=== PATIENT | male | born 1995 | race Caucasian/White ===

== ENCOUNTER 2019-09-11 22:17 | Observation (INO) | payer BC, SELFPAY ==
--- NOTE | ~2019-09-11 | CT_ITS ---
EXAMINATION: CT abdomen pelvis w con INDICATION: Abdominal pain TECHNIQUE: Computed tomographic images of the abdomen and pelvis were obtained after the administrati on of 100 cc of Omnipaque 350 intravenous contrast. The dose-length product (DLP) was 235.89 mGy-cm. Automated exposure control and iterative reconstruction technique were employed. COMPARISON: None available FINDINGS: The lung bases are clear. The heart size is normal. The liver, spleen, pancreas, gallbladde r, and adrenal glands are normal. The kidneys are unremarkable. The dilated appendix measures up to 1 0 mm and courses into the right pelvis. There is edematous stranding of the periappendiceal. A small volume of ascites is present in the pelvis. There is no evidence of abscess or perforation. No pathol ogically enlarged abdominal or pelvic lymph nodes are identified. There is no free intraperitoneal ga s or evidence of bowel obstruction. IMPRESSION: 1. Acute appendicitis, uncomplicated. Reviewed, dictated and finalized at location A.
[2019-09-11 22:19] VITALS: BP 136/83; PULSE 108; RESP 19; TEMP 36.2; O2SAT 97
[2019-09-11 22:36] LABS: Basophils Percent Auto 0.1 % (0.2-1.2); Hematocrit 43.7 % (42.0-52.0); Hemoglobin 15.4 g/dL (14.0-18.0); Immature Granulocyte Absolute 0.13 K/mm3 (0.00-0.031); Immature Granulocyte Percent A 0.6 % (0-0.5); Lymphocytes Absolute Auto 1.36 K/mm3 (0.9-3.2); Lymphocytes Percent Auto 6.6 % (18.3-44.2); Mean Corpuscular HGB Conc 35.2 g/dl (32-36); Mean Corpuscular Hemoglobin 30.3 pg (26-34); Mean Corpuscular Volume 85.9 fl (80-100); Mean Platelet Volume 9.6 fl (7.4-10.4); Monocytes Absolute Auto 1.8 K/mm3 (0.1-0.6); Monocytes Percent Auto 8.7 % (2.6-8.5); Neutrophils Absolute Auto 17.4 K/mm3 (1.3-6.7); Platelet Count Result 323 k/mm3 (150-375); Red Blood Count 5.09 M/mm3 (4.6-6.20); Red Cell Distribution Width 12.2 % (11.5-14.5); White Blood Count 20.8 K/mm3 (4.5-10.0)
[2019-09-11 22:49] LABS: Alanine Aminotransferase 20 U/L (4-50); Albumin Level 5.1 g/dL (3.5-5.1); Alkaline Phosphatase 62 U/L (38-126); Aspartate Amino Transferase 26 U/L (17-59); Bilirubin,Total 2.7 mg/dL (0.2-1.3); Blood Urea Nitrogen 18 mg/dL (9-20); Carbon Dioxide 27 mmol/L (22-30); Chloride 99 mmol/L (98-107); Estimated CRCL calculation 101 ml/min; Estimated Glomerular Filt Rate > 60; Glucose 112 mg/dL (75-110); Lipase 56 U/L (23-300); Potassium 3.8 mmol/L (3.4-5.0); Sodium 137 mmol/L (137-145)
--- NOTE | 2019-09-11 22:52 | ED.NAVMDI ---
HPI - Nausea/Vomiting/Diarrhea General Chief complaint: Nausea/Vomiting/Diarrhea Stated complaint: wants covid test Time Seen by Provider: 09/11/19 22:23 Source: RN notes reviewed History of Present Illness HPI Narrative: Patient presents emergency department from home for abdominal pain. Patient states symptoms began 3 days ago. Patient states pain in the bilateral lower abdomen described as achy. Associated with nausea vomiting and diarrhea. Denies any fevers or chills chest pain shortness of breath cough or any other symptoms at this time. States he is taking no medication today for the symptoms. Related Data Home Medications Medication Instructions Recorded Confirmed dextroamphetamine-amphetamine 09/11/19 escitalopram oxalate mg 09/11/19 Allergies Allergy/AdvReac Type Severity Reaction Status Date / Time No Known Allergies Allergy Verified 09/11/19 22:22 Review of Systems Review of Systems: Narrative: Gen.: Denies fevers or chills ENT: Denies congestion Respiratory: Denies shortness of breath or cough CV: Denies chest pain or palpitations GI: See HPI denies burning, urgency, frequency or hematuria Musculoskeletal: Denies back pain or muscle pain Neuro: Denies numbness, tingling, weakness or focal weakness Skin: Denies rash Except as documented, all other systems reviewed and negative [facility] Past Medical History Medical History (Updated 09/11/19 @ 23:49 by Evin Juarez DO) Patient denies significant medical history Social History Social History (Updated 09/11/19 @ 22:53 by Evin Juarez DO) Smoking status: Never smoker Gender identity (if verbalized by the patient): Male Exam Narrative: Exam Narrative: APPEARANCE: No acute distress, nontoxic, resting in bed HEENT: Normocephalic, atraumatic, OMM RESPIRATORY: No respiratory distress, clear to auscultation bilaterally with no rhonchi wheezing or rales CARDIOVASCULAR: RRR s murmur ABDOMINAL: Soft, nondistended, tender palpation right lower quadrant left lower quadrant, no tenderness right upper quadrant left upper quadrant, no rebound or guarding MUSCULOSKELETAl: Moves all extremities. No clubbing, cyanosis or edema. NEURO: Awake and alert. Following commands, speech normal, no focal deficits SKIN:: Warm, dry. Normal Color PSYCHIATRIC: Normal affect/mood Course Course Emergency Course: Discussed with Dr. Varma presentation work-up. Agrees with admission at this time Discussed with patient and family results of workup and diagnosis. Discussed need for admission. Patient and family understand and agree to current treatment plan Vital Signs Vital signs: Vital Signs Temperature 97.2 F L 09/11/19 22:19 Pulse Rate 108 H 09/11/19 22:19 Respiratory Rate 19 09/11/19 22:19 Blood Pressure 136/83 09/11/19 22:19 Pulse Oximetry 97 09/11/19 22:19 Temperature 97.2 F L 09/11/19 22:19 Pulse Rate 108 H 09/11/19 22:19 Respiratory Rate 09/11/19 22:19 Blood Pressure 136/83 09/11/19 22:19 Pulse Oximetry 97 09/11/19 22:19 MDM - Nausea/Vomiting/Diarrhea Lab Data Result diagrams: 09/11/19 22:31 09/11/19 22:31 Labs: Lab Results 09/11/19 09/11/19 Range/Units 22:31 22:31 WBC 20.8 H (4.5-10.0) K/mm3 RBC 5.09 (4.6-6.20) M/mm3 Hgb 15.4 (14.0-18.0) g/dL Hct 43.7 (42.0-52.0) % MCV 85.9 (80-100) fl MCH 30.3 (26-34) pg MCHC 35.2 (32-36) g/dl RDW 12.2 (11.5-14.5) % Plt Count 323 (150-375) k/mm3 MPV 9.6 (7.4-10.4) fl Immature Gran % (Auto) 0.6 H (0-0.5) % Neut % (Auto) 84.0 H (45.5-73.1) % Lymph % (Auto) 6.6 L (18.3-44.2) % Cloud % (Auto) 8.7 H (2.6-8.5) % Eos % (Auto) 0.0 (0-4.4) % Baso % (Auto) 0.1 L (0.2-1.2) % Lymph # (Auto) 1.36 (0.9-3.2) K/mm3 Cloud # (Auto) 1.8 H (0.1-0.6) K/mm3 Eos # (Auto) 0.0 (0-0.3) K/mm3 Baso # (Auto) 0.0 (0.0-0.1) K/mm3 Abs Immat Gran (auto) 0.13 H (0.00-0.031) K/
[2019-09-11] MEDS: SODIUM CHLORIDE 0.9% IV 1,000 ML 999 ML IV CONT (23:00)
[2019-09-11] MEDS: KETOROLAC 30 MG/ML VIAL (*BKC) IV PUSH (23:00)
[2019-09-11] MEDS: ONDANSETRON INJ 4 MG/2 ML VIAL IV PUSH (23:00)
[2019-09-12] VITALS (13 sets, daily range): BP systolic 111–132; BP diastolic 58–88; PULSE 77–102; RESP 16–20; TEMP 36.7–37.2; O2SAT 96–100; BMI 22.8
[2019-09-12] MEDS: MORPHINE SULFATE 4 MG/ML INJ IV PUSH ×2 (00:08→04:15)
--- NOTE | 2019-09-12 00:48 | ADMGEN ---
This patient, Leonel Montano, was admitted to [facility] Room 317-01. Patient/family oriented to hospital policies and general routines including ID bracelet, bed and alarms, visiting hours, pain management, procedures, bathroom and other care routines, personal items, smoking policy, room service/diet, and visiting hours. Valuables list has been completed. Information on how to activate the Rapid Response Team has been discussed. Patient/Family are encouraged to report perceived risks to care and to ask questions if they do not understand what they are told or what they should do.
[2019-09-12] MEDS: SODIUM CHLORIDE 0.9% IV 1,000 ML 125 ML IV CONT (01:05)
[2019-09-12 02:41] LABS: Add Urine Microscopic? NO; Appearance Urine Clear (Clear); Bilirubin Urine Negative (Negative); Blood Urine Negative (Negative); Color Urine Straw (Yellow); Glucose Urine UA Negative (Negative); Ketones Urine Negative (Negative); Leukocyte Esterase Ur Negative LEU/UL (Negative); Nitrate Urine Negative (Negative); Protein Urine Negative (Negative); Urobilinogen Urine Negative mg/dL (<2.0)
[2019-09-12 02:43] LABS: Specific Grav Ur 1.058 (1.001-1.035)
[2019-09-12] MEDS: ONDANSETRON INJ 4 MG/2 ML VIAL IV PUSH ×2 (03:51→10:17)
[2019-09-12 06:08] LABS: Basophils Percent Auto 0.2 % (0.2-1.2); Eosinophils Percent Auto 0.2 % (0-4.4); Hematocrit 37.7 % (42.0-52.0); Hemoglobin 12.8 g/dL (14.0-18.0); Immature Granulocyte Absolute 0.04 K/mm3 (0.00-0.031); Immature Granulocyte Percent A 0.4 % (0-0.5); Lymphocytes Absolute Auto 1.87 K/mm3 (0.9-3.2); Lymphocytes Percent Auto 16.9 % (18.3-44.2); Mean Corpuscular Hemoglobin 29.8 pg (26-34); Mean Corpuscular Volume 87.9 fl (80-100); Mean Platelet Volume 9.8 fl (7.4-10.4); Monocytes Percent Auto 9.1 % (2.6-8.5); Neutrophils Absolute Auto 8.1 K/mm3 (1.3-6.7); Neutrophils Percent Auto 73.2 % (45.5-73.1); Platelet Count Result 241 k/mm3 (150-375); Red Blood Count 4.29 M/mm3 (4.6-6.20); Red Cell Distribution Width 12.3 % (11.5-14.5); White Blood Count 11.1 K/mm3 (4.5-10.0)
[2019-09-12 06:22] LABS: Blood Urea Nitrogen 17 mg/dL (9-20); Calcium 8.8 mg/dL (8.4-10.2); Carbon Dioxide 27 mmol/L (22-30); Chloride 106 mmol/L (98-107); Estimated CRCL calculation 106 ml/min; Estimated Glomerular Filt Rate > 60; Glucose 94 mg/dL (75-110); Potassium 3.6 mmol/L (3.4-5.0); Sodium 136 mmol/L (137-145)
--- NOTE | 2019-09-12 07:38 | PC.NURSE ---
To OR per [ bed].
[2019-09-12] MEDS: LACTATED RINGERS 1,000 ML 30 ML IV CONT ×2 (07:50→09:49)
--- NOTE | 2019-09-12 07:59 | WPDANESEPPF ---
Anes - Initial Pre Proc Eval Procedure: Operation Date: 09/12/19 09:00 Proposed Procedures p Laparoscopic Appendectomy - Neftaly Varma MD Date/Time: 09/12/19 07:59 Surgeon: Neftaly Varma MD Pre Op Diagnosis: Appendicitis Patient Data Age: 23 Gender: M Height: 5 ft 7 in Weight: 66.2 kg Last Vital Signs Temp 36.9 C 09/12/19 07:55 Pulse 77 09/12/19 07:55 Resp 20 09/12/19 07:55 BP 114/70 09/12/19 07:55 Pulse Ox 98 09/12/19 07:55 Allergies Allergy/AdvReac Type Severity Reaction Status Date / Time No Known Allergies Allergy Verified 09/11/19 22:22 Home Medications Medication Instructions Recorded Confirmed Type dextroamphetamine-amphetamine 15 mg PO DAILY 09/11/19 09/12/19 History [Adderall] escitalopram oxalate [Lexapro] 20 mg PO DAILY 09/11/19 09/12/19 History Laboratory Tests 09/11/19 09/11/19 09/12/19 22:31 22:31 02:29 WBC 20.8 K/mm3 H K/mm3 (4.5-10.0) RBC 5.09 M/mm3 M/mm3 (4.6-6.20) Hgb 15.4 g/dL g/dL (14.0-18.0) Hct 43.7 % % (42.0-52.0) MCV 85.9 fl fl (80-100) MCH 30.3 pg pg (26-34) MCHC 35.2 g/dl g/dl (32-36) RDW 12.2 % % (11.5-14.5) Plt Count 323 k/mm3 k/mm3 (150-375) MPV 9.6 fl fl (7.4-10.4) Immature Gran % (Auto) 0.6 % H % (0-0.5) Neut % (Auto) 84.0 % H % (45.5-73.1) Lymph % (Auto) 6.6 % L % (18.3-44.2) [place] % (Auto) 8.7 % H % (2.6-8.5) Eos % (Auto) 0.0 % % (0-4.4) Baso % (Auto) 0.1 % L % (0.2-1.2) Lymph # (Auto) 1.36 K/mm3 K/mm3 (0.9-3.2) [place] # (Auto) 1.8 K/mm3 H K/mm3 (0.1-0.6) Eos # (Auto) 0.0 K/mm3 K/mm3 (0-0.3) Baso # (Auto) 0.0 K/mm3 K/mm3 (0.0-0.1) Abs Immat Gran (auto) 0.13 K/mm3 H K/mm3 (0.00-0.031) Absolute Neuts (auto) 17.4 K/mm3 H K/mm3 (1.3-6.7) Absolute Nucleated RBC 0.0 K/mm3 K/mm3 (0.0-0.012) Nucleated RBC % 0.0 % % (0.0-0.2) Sodium 137 mmol/L mmol/L (137-145) Potassium 3.8 mmol/L mmol/L (3.4-5.0) Chloride 99 mmol/L mmol/L (98-107) Carbon Dioxide 27 mmol/L mmol/L (22-30) BUN 18 mg/dL mg/dL (9-20) Creatinine 0.90 mg/dL mg/dL (0.7-1.3) Estim Creat Clear Calc 101 ml/min ml/min Estimated GFR > 60 (59 - ) Glucose 112 mg/dL H mg/dL (75-110) Calcium 10.0 mg/dL mg/dL (8.4-10.2) Total Bilirubin 2.7 mg/dL H mg/dL (0.2-1.3) AST 26 U/L U/L (17-59) ALT 20 U/L U/L (4-50) Alkaline Phosphatase 62 U/L U/L (38-126) Total Protein 9.0 g/dL H g/dL (6.3-8.2) Albumin 5.1 g/dL g/dL (3.5-5.1) Lipase 56 U/L U/L (23-300) Urine Color Straw (Yellow) Urine Appearance Clear (Clear) Urine pH 6.0 (5.0-9.0) Ur Specific [place] 1.058 H (1.001-1.035) Urine Protein Negative mg/dL mg/dL (Negative) Urine Glucose (UA) Negative mg/dL mg/dL (Negative) Urine Ketones Negative mg/dL mg/dL (Negative) Ur Blood (Man) Negative (Negative) Urine Nitrate Negative (Negative) Urine Bilirubin Negative (Negative) Urine Urobilinogen Negative mg/dL mg/dL (<2.0) Leukocyte Esterase Rfl Negative MANUELA/UL MANUELA/UL (Negative) 09/12/19 09/12/19 05:47 05:47 WBC 11.1 K/mm3 H K/mm3 (4.5-10.0) RBC 4.29 M/mm3 L M/mm3 (4.6-6.20) Hgb 12.8 g/dL L g/dL (14.0-18.0) Hct 37.7 % L % (42.0-52.0) MCV 87.9 fl fl (80-100) MCH 29.8 pg pg (26-34) MCHC 34.0 g/dl g/dl (32-36) RDW 12.3 % % (11.5-14.5) Plt Count 241 k/mm3 k/mm3 (150-375) MPV 9.8 fl fl (7.4-10.4) Immature Gran % (Auto) 0.4 % % (0-0.
--- NOTE | 2019-09-12 08:27 | PM.IMHP ---
H&P: HPI History of Present Illness Chief complaint: Appendicitis Narrative: Leonel Montano is a 23 year old male who presented to [facility] emergency department from home for abdominal pain late last night. Patient states symptoms began 3 days ago. This was Sun evening at abot 10 PM. Initially it was mainly severe cramping pain in the mid abdomen. Patient states pain in the bilateral lower abdomen described as achy. Associated with nausea vomiting and diarrhea. Denies any fevers or chills chest pain shortness of breath cough or any other symptoms at this time. States he is taking no medication today for the symptoms. Workup in the emergency room showed elevated white count and on CT scan of the abdomen and pelvis a swollen appendix extending into the pelvis with some rounding edema. There was no sign of perforation. Review of Systems Constitutional: Constitutional: Reports no additional constitutional complaints and Denies frequent falls Eyes: Eyes: Reports as per HPI ENT: Reports Normal hearing present, Denies dizziness and Reports other (Mucous membranes moist.) Cardiovascular: Cardiovascular: Denies chest pain, Denies palpitations, Denies dyspnea and Denies dyspnea on exertion Respiratory: Respiratory: Denies hemoptysis, Denies dyspnea, Denies dyspnea on exertion and Denies wheezing Gastrointestinal: Gastrointestinal: Reports no additional gastrointestinal complaints Genitourinary: Genitourinary: Denies hematuria, Denies nocturia and Denies urinary frequency Musculoskeletal: Musculoskeletal: Denies deformity and Reports other ( no clubbing,cyanosis, or edema) Integumentary/Breasts: Skin/Breast: Denies new lesions, Denies rash and Denies unusual bruising Neurologic: Reports Normal hearing present, Denies dizziness, Denies frequent falls, Denies memory loss and Denies seizure-like activity Psychiatric: Psychiatric: Denies memory loss and Reports other ( normal mood and mental status) Endocrine: Endocrine: Denies cold intolerance and Denies palpitations Hematologic/Lymphatic: Hematologic/Lymphatic: Denies easy bleeding and Denies easy bruising Allergic/Immunologic: Allergic/Immunologic: Denies wheezing and Reports other ( no lymphadenopathy) [facility] Past Medical History Medical History (Updated 09/12/19 @ 08:37 by Neftaly Varma MD) ADHD Anxiety Patient denies significant medical history Social History Social History Smoking status: Never smoker Alcohol intake: never Substance use type: marijuana Other substance usage details: pt uses marijuana occasionally Gender identity (if verbalized by the patient): Male Spiritual care concerns: No Meds Home Medications and Allergies Home Medications Medication Instructions Recorded Confirmed Type dextroamphetamine-amphetamine 15 mg PO DAILY 09/11/19 09/12/19 History [Adderall] escitalopram oxalate [Lexapro] 20 mg PO DAILY 09/11/19 09/12/19 History Allergies Allergy/AdvReac Type Severity Reaction Status Date / Time No Known Allergies Allergy Verified 09/11/19 22:22 Vital Signs Vital Signs - 24 hr 09/11/19 22:19 09/12/19 00:12 09/12/19 01:16 Temperature 36.2 C L 37.1 C Pulse Rate 108 H 92 101 H Respiratory Rate 19 16 20 Blood Pressure 136/83 119/77 111/68 Pulse Oximetry 97 97 97 09/12/19 06:00 09/12/19 07:55 Temperature 37.2 C 36.9 C Pulse Rate 98 77 Respiratory Rate 20 20 Blood Pressure 127/58 L 114/70 Pulse Oximetry 100 98 Exam Const: General: cooperative, no acute distress, well developed, alert and awake Nutritional Appearance: well nourished Orientation/consciousness: patient oriented x3 Limitations: no limitations HENMT: Head: normal to inspection, normocephalic and atraumatic Ears: hearing grossly normal bilaterally General nose exam: Normal external nose present Face and sinus: normal facial exam Mouth: Yes Normal oral and palatal mucosa prese
[2019-09-12] MEDS: BUPIVACAINE/EPINEPHRINE 0.5% 30 ML VIAL 20 ML INFILTRATE (09:11)
--- NOTE | 2019-09-12 09:48 | PM.PROC ---
Procedure Note - Detailed Date of procedure: 09/12/19 Pre-op diagnosis: Appendicitis Post-op diagnosis: other (Acute uncomplicated appendicitis) Procedure performed: Laparoscopic Appendectomy Description of procedure: The patient was seen in the Holding Room. The risks, benefits, complications, treatment options, and expected outcomes were discussed with the patient. The possibilities of reaction to medication, pulmonary aspiration, perforation of viscus, bleeding, recurrent infection, finding a normal appendix, the need for additional procedures, failure to diagnose a condition, and creating a complication requiring transfusion or operation were discussed. There was concurrence with the proposed plan and informed consent was obtained. The site of surgery was properly noted/marked. The patient was taken to Operating Room, and a time out was preformed which identified this as the proper patient, and the procedure verified as laparoscopic appendectomy, possible open. The patient was placed in the supine position and general anesthesia was induced, along with placement of orogastric tube, SCD hose, and a Gonzalez catheter. The abdomen was prepped and draped in a sterile fashion. A 5 mm umbilical incision was made and the peritoneal cavity was accessed using the Veress needle technique. Once the abdomen was insufflated to 14 mmHg pressure a 5 mm XL trocar over the 0? 5 mm scope was carefully twisted into the abdomen via the umbilicus. The pneumoperitoneum was then established to steady pressure of 14 mm Hg. A 12 mm laparoscopic port was placed through a transverse suprapubic incision. An additional 5 mm cannula was then placed in the left lower quadrant of the abdomen at a level half way between the umbilicus and pubic symphysis under direct vision. A careful evaluation of the entire abdomen was carried out. The patient was placed in Trendelenburg and left lateral decubitus position. The small intestines were retracted in the cephalad and left lateral direction away from the pelvis and right lower quadrant. The patient was found to have an enlarged and inflamed appendix that was extending [into the right side of the pelvis. There was no evidence of perforation. The appendix was carefully dissected. Once it was free a 45 mm ethicon endogastroentestinal stapler with a vascular load was placed across the mesoappendix. This was fired and hemostasis was checked along the staple line and appeared to be adequate. I did touch the mesoappendix staple line with the Bovie cautery on a right angle tip cautery a couple places along the staple line because of continued oozing. This seemed to good give good hemostasis. For this patient, this divided the entire mesoappendix and we were able to proceed immediately to stapling off the appendix at it's junction with the cecum. The appendix was then divided at its base using the same 45 mm stapler with a 3.5 mm bowel wall load. Minimal appendiceal stump was left in place. There was no evidence of bleeding, leakage, or complication after division of the appendix at its junction with the cecum.. The appendix was then placed in an endobag which had been brought through the 12 mm suprapubic port site. The appendix and the bag were then extracted through this larger port site in the suprapubic position. Following this, after replacing the 12 mm port in the suprapubic position I passed 3 separate on folded 4x4s into the abdomen and soaked up some peritoneal fluid and residual blood from the staple line bleeding and recheck the staple lines. Good hemostasis seem to be present. These were all completely removed. The suprapubic port site was carefully checked with a finger as I tried to reposition the 12 mm port through the muscular wall in the lower abdomen to use a 4 x 4 to check hemostasis. The muscles were quite tight and there was a angled coursed to the port site placement therefore I did not feel that this patient needed any deeper large sutu
--- NOTE | 2019-09-12 10:13 | SUR.PHASEI ---
1000 DR SKINNER SPEAKING WITH PTS MOTHER PER PHONE.
[2019-09-12] MEDS: SCOPOLAMINE 1.5 MG PATCH TRANSDERM (10:39)
--- NOTE | 2019-09-12 11:17 | PC.NURSE ---
Patient returned from OR at 1104.
[2019-09-12] MEDS: LACTATED RINGERS 1,000 ML 100 ML IV CONT (11:25)
--- NOTE | 2019-09-24 14:38 | PM.DS ---
DS: Admitting Diagnosis Admitting Diagnosis Admitting Diagnosis: Unspecified acute appendicitis DS: Discharge Diagnosis Discharge Diagnosis (1) Acute appendicitis: Onset Date: 09/07/19 Code(s): K35.80 - Unspecified acute appendicitis Status: Acute Assessment and Plan: 09/12/[address] Varma (2) ADHD: Code(s): F90.9 - Attention-deficit hyperactivity disorder, unspecified type Status: Acute DS: Summary Hospital Course Reason for hospitalization: Leonel Montano is a 23 year old male who presented to [facility] emergency department from home for abdominal pain x 3 days, with associated nausea, vomiting, and diarrhea. ED workup revealed leukocytosis with CT evidence of a dilated appendix extending into the pelvis with surrounding edema. No signs of perforation. The patient was then admitted for surgical evaluation of acute uncomplicated appendicitis. Hospital Course: (Discharge summary from 09/12/19) The patient was admitted, started on IV antibiotics, IV fluids, and made NPO. He was evaluated and proceeded with laparoscopic appendectomy By Dr. Varma on 09/12/19. There were no intraoperative signs of perforation (see full operative report for details). The patient dealt with some post-operative nausea and vomiting. This was treated with anti-emetics and a scopolamine patch was applied in PACU. The patient was then later evaluated on the medical floor and his nausea had subsided. He was tolerating a diet by the evening, pain was well-controlled at rest and with activity, and he was voiding without complications. The patient was then discharged home that evening after speaking with Dr. Varma, who agreed. Discharge instructions were discussed with the patient on the medical floor. He had no complaints at the time of my exam around 1600 on 09/12/19. Status at Discharge Functional status at discharge: independent ambulation Overall status at discharge: patient is progressing back to baseline Time Spent with Patient Time attestation: Total time spent providing and/or coordinating discharge services: Time spent: Less than 30 minutes Exam Const: General: comfortable, no acute distress, alert and awake Orientation/consciousness: patient oriented x3 Resp: Effort & Inspection: normal respiratory effort and able to speak in complete sentences Auscultation: clear to auscultation bilaterally Cardio: Rate: regular rate Rhythm: regular rhythm GI: Inspection: non-distended and incision (Abdominal incisions clean/dry/intact.) GI Palp: Yes Soft to palpation, Yes Tenderness to palpation present (GI) (incisional, expected), No Guarding due to palpation present (GI) and No Rebound tenderness present Auscultation: normal bowel sounds Neuro: General: patient oriented x3 and moves all extremities Cranial nerves: Yes CN's II-XII intact bilaterally Speech: normal speech Extrem: General: no calf tenderness and no edema Psych: Mental Status: mental status grossly normal Attitude: cooperative Thought process: Normal thought process present Thought content: Yes Normal thought content present DS: Data Data Completed and Pending Completed studies during hospitalization: Pending at discharge 09/12/19 09:14 Surgical [PTH] Routine Discharge Plan Discharge Attending physician on discharge: Neftaly Varma Consulting providers: Anam Hunter ; Karina Rene ; Yonny Ortiz Discharging Clinician: Karina Rene Anticipated Discharge Date/Time: 09/12/19 18:15 Patient Disposition: Home, Self-Care Activity: may shower, no straining and other - see discharge instructions Diet: regular Wound Care Instructions: incision open to air and other - see discharge instructions Discharge Instructions: Remove the Scopolamine patch that was placed behind your ear in 72 hours or less. Wash your hands after touching. General Surgery Instructions (Dr. Varma): 1. M
== END 2019-09-12 19:10 | disposition home or self-care (01) ==
LOC: ANHED 23:53 → ANH3MEDSUR 23:57
PROVIDERS: Admitting Provider Surgery; Emergency Provider Emergency Medicine; Visit Provider Surgery
PROC: 0DTJ4ZZ Resection of Appendix, Percutaneous Endoscopic Approach (ICD-10-PCS; CPT 44970; principal; 2019-09-12 09:00)
DX: K35.80 Unspecified acute appendicitis (principal)
CPT/HCPCS: 44970; 36415; 74177; 80048; 80053; 81003; 83690; 85025; 88304; 96361; 96365; 96367; 96375; 96376; 99285; A9270; G0378; J0131; J0330; J1100; J1170; J1200; J1885; J2250; J2270; J2405; J2543; J2704; J2710; J3010; J7030; J7120; Q9967